=== PATIENT | female | born 1960 | race Caucasian/White ===

== ENCOUNTER 2018-03-24 00:04 | Emergency (ER) | payer BC, OTHER ==
[~2018-03-24] VITALS: Ht 175.3 cm; Wt 86.2 kg
[~2018-03-24 00:04] MED LIST: ALLERGY25 MG PO; ASPIR-LOW81 MG PO; CALCIUM 600 MG1 EACH PO; CHANTIX1 MG PO; KLOR-CON 1010 MEQ PO; MAGNESIUM CITR296 ML PO; METOPROLOL TART50 MG PO; PRAVASTATIN SOD20 MG PO; SYNTHROID50 MCG PO; TRAZODONE HCL100 MG PO
[2018-03-24] MEDS ORDERED: NORCO 5-325 TA1 EACH PO (01:29)
== END 2018-03-24 01:47 | disposition home or self-care (01) ==
LOC: ED 00:04
PROC: 08QNXZZ Repair Right Upper Eyelid, External Approach (ICD-10-PCS; principal; 2018-03-24)
DX: S01.111A Laceration without foreign body of right eyelid and periocular area, initial encounter (principal); E03.9 Hypothyroidism, unspecified; Z90.710 Acquired absence of both cervix and uterus; Z91.018 Allergy to other foods; Z79.82 Long term (current) use of aspirin; Z79.899 Other long term (current) drug therapy; Z23 Encounter for immunization; W01.10XA Fall on same level from slipping, tripping and stumbling with subsequent striking against unspecified object, initial encounter
CPT/HCPCS: 12011; 70450; 70486; 90471; 90715; 99284-25

== ENCOUNTER 2024-02-25 07:31 | Emergency (ER) | payer OTHER ==
[~2024-02-25] VITALS: Ht 175.3 cm; Wt 79.0 kg
[~2024-02-25 07:31] MED LIST changes: +NORCO 5-325 TA1 EACH PO
[2024-02-25] MEDS ORDERED: SODIUM CHLORIDE 0.9% 1,000 ML IV ONE (08:00)
[2024-02-25 08:26] LABS: ALBUMIN 3.9 g/dL (3.4-5.0); ALBUMIN/GLOBULIN RATIO 1.26 (1.1-2.4); ANION GAP 20.6 (7-21); BILIRUBIN, TOTAL 0.7 ng/dL (0.2-1.0); BUN/CREATININE RATIO 13.88 (6.0-28.6); CALCIUM 9.9 mg/dL (8.5-10.1); CREATININE, SERUM 1.08 mg/dL (0.55-1.02); POTASSIUM 3.6 mmol/L (3.5-5.1)
[2024-02-25 08:35] LABS: BASOPHILS 0.7 % (0-2); EOSINOPHILS 0.8 % (0-6); HEMATOCRIT 39.7 % (35.0-50.0); HEMOGLOBIN 13.8 g/dL (12.0-18.0); LYMPHOCYTES 11.6 % (24-44); MCH 33.8 (27-36); MCHC 34.7 g/dl (30-36); MCV 97.2 fl (81-99); MONOCYTES 9.4 % (0-12); NEUTROPHILS 77.5 % (39-80); PLATELET COUNT 111 K/uL (140-440); RBC 4.08 M/ul (4.3-5.7); RDW 13.3 (10.5-15.0)
[2024-02-25 09:06] LABS: BILIRUBIN, URINE POSITIVE (negative); BLOOD/HGB, URINE NEGATIVE (Negative); KETONE, URINE >=80 (Negative); LEUK ESTERASE, URINE NEGATIVE (negative); NITRITE, URINE NEGATIVE (negative); PH, URINE 6.5 (5-7)
[2024-02-25 09:34] VITALS: BP 145/84
--- NOTE | 2024-02-25 20:52 | EKG ---
[facility] [address] [facility] [address] [place] [address] Signed Sinus rhythm with 1st degree AV block Otherwise normal ECG No previous ECGs available Confirmed by Joni De Santiago MD ([id number]) on 02/25/2024 8:52:26 PM Electronically Signed By: JONI DE SANTIAGO DO 02/25/242051 PATIENT NAME: TALA DENNIS Electrocardiogram DATE OF : 62 PHYSICIAN: JONI DE SANTIAGO DO REPORT #: [id number] REPORT IS CONFIDENTIAL AND NOT TO BE RELEASED WITHOUT AUTHORIZATION
== END 2024-02-25 09:36 | disposition home or self-care (01) ==
LOC: ED 07:31
PROVIDERS: Emergency Medicine
DX: R42 Dizziness and giddiness (principal); E03.9 Hypothyroidism, unspecified; Z79.890 Hormone replacement therapy; Z79.899 Other long term (current) drug therapy; Z79.82 Long term (current) use of aspirin; Z91.018 Allergy to other foods
CPT/HCPCS: 36415; 80053; 81003; 83690; 85025; 93005; 93010; 99284; J7030

== ENCOUNTER 2024-11-30 09:48 | Emergency (ER) | payer BC ==
[~2024-11-30] VITALS: Ht 175.3 cm; Wt 68.8 kg
[2024-11-30] MEDS ORDERED: BUPROPION XL150 MG PO (10:07)
[2024-11-30] MEDS ORDERED: LEVOTHYROXINE137 MCG PO (10:07)
[2024-11-30] MEDS ORDERED: BUPROPION XL300 MG PO (10:08)
[2024-11-30] MEDS ORDERED: ATORVASTATIN CA40 MG PO (10:08)
[2024-11-30] MEDS ORDERED: SODIUM CHLORIDE 0.9% 1,000 ML IV PRN (10:15)
[2024-11-30 10:23] LABS: BASOPHILS 0.3 % (0.1-1.2); EOSINOPHILS 0.2 % (0.7-5.8); LYMPHOCYTES 7.7 % (19.3-51.7); MCH 32.8 PG (25.6-32.2); MCHC 35.7 g/dL (32.2-35.5); MCV 92.0 fL (79.4-94.8); MONOCYTES 12.5 % (4.7-12.5); NEUTROPHILS 78.8 % (34.0-71.1); RBC 3.75 M/uL (3.93-5.22)
[2024-11-30 10:43] LABS: ALT (SGPT) 129.0 U/L (14-59); AST (SGOT) 223.0 U/L (15-37); GLOMERULAR FILTRATION RATE,EST 49.0 mL/min (>60); PROTEIN, TOTAL 7.5 g/dL (6.4-8.2); UREA NITROGEN 13.0 mg/dL (7-18)
[2024-11-30] MEDS ORDERED: KETOROLAC TROMETHAMINE 30 MG/ML VIAL IV ONE (10:45)
[2024-11-30 11:26] LABS: CORONAVIRUS COVID-19 AG NEGATIVE (NEGATIVE)
[2024-11-30] MEDS ORDERED: AZITHROMYCIN500 MG PO (13:08)
[2024-11-30] MEDS ORDERED: AZITHROMYCIN 250 MG TAB PO ONE (13:15)
[2024-11-30 13:53] VITALS: BP 116/81
== END 2024-11-30 13:52 | disposition home or self-care (01) ==
LOC: ED 09:48
PROVIDERS: Emergency Medicine
DX: J18.9 Pneumonia, unspecified organism (principal); Z79.82 Long term (current) use of aspirin; Z79.899 Other long term (current) drug therapy
CPT/HCPCS: 36415; 71045; 74177; 80053; 83690; 83735; 85025; 96361; 96365; 96375; 99284-25; J0696; J1885; J7030; Q9967